=== PATIENT | male | born 1950 | race Caucasian/White ===

== ENCOUNTER 2017-05-06 11:57 | Emergency (ER) | payer OTHER ==
[~2017-05-06] VITALS: Ht 172.7 cm; Wt 76.0 kg
[~2017-05-06 11:57] MED LIST: ADULT LOW DOSE81 M1 PO; ADVAIR 500/501 DISK IH; ASMANEX TW200 MICRO1 IH; ASPIR 8181 M1 PO; ASPIR-LOW81 MG PO; ASTHMA CHECK1 EACH; BACTRIM,SEPT1 TABLET PO; DIOVAN80 MG PO; FISH OIL SOFTG1 EACH PO; FLONASE16 G1 BOTH NARES; GLUCOSAMINE CH1 EACH PO; KEFLEX500 MG PO; LOSARTAN POTASS50 MG PO; MOVE FREE JOIN1 EACH PO; MOVE FREE1 CAPSULE PO; ONE DAILY FOR1 EACH PO; ONE DAILY1 EAC1 PO; ONE-A-DAY MEN'1 EACH PO; PREVACID30 MG PO; PROAIR HFA8.5 GM IH; RAPAFLO8 MG PO; SAW PALMETTO160 MG PO; SIMVASTATIN40 MG PO; SINGULAIR10 MG PO; TAMSULOSIN HCL0.4 MG PO; ULTRAM50 MG PO; ZOCOR20 MG PO
[2017-05-06 13:07] LABS: HEMATOCRIT 39.7 % (38.0-50.0); MCH 30.7 PG (29.0-34.0); MCV 90.2 FL (86-99); MEAN PLAT.VOLUME 8.6 uM^3 (9.0-12.4); PLATELET COUNT 246 K/uL (156-360); RBC DIS.WIDTH-CV 12.8 % (11.8-14.6); RBC DIS.WIDTH-SD 42.2 % (39-53); WHITE BLOOD COUNT 8.1 K/uL (4.1-10.2)
[2017-05-06 13:16] LABS: CHLORIDE 105 mEq/L (99-109); POTASSIUM 4.2 mEq/L (3.7-5.4); SODIUM 141 mEq/L (136-147)
[2017-05-06 13:19] LABS: GLUCOSE 100 mg/dL (70-99)
[2017-05-06 13:20] LABS: ANION GAP 8 MEQ/L (2-14)
[2017-05-06 13:21] LABS: TOTAL BILIRUBIN 0.5 mg/dL (0.0-1.0)
[2017-05-06 13:22] LABS: ALKALINE PHOSPHATASE 76 IU/L (3-129); GFR ESTIMATE (CALCULATED) > 59 mL/min/
[2017-05-06 13:23] LABS: UREA NITROGEN (BUN) 15 mg/dL (9-23)
[2017-05-06] MEDS ORDERED: BACTRIM,SEPT1 TABLET PO (13:52)
[2017-05-06] MEDS ORDERED: SUDAFED 12-HOU120 MG PO (13:53)
[2017-05-06 14:47] VITALS: BP 127/84
== END 2017-05-06 14:48 | disposition home or self-care (01) ==
LOC: EME 11:57
DX: R51 Headache (principal); J32.9 Chronic sinusitis, unspecified; R42 Dizziness and giddiness; I10 Essential (primary) hypertension; J44.9 Chronic obstructive pulmonary disease, unspecified; J45.909 Unspecified asthma, uncomplicated; Z79.82 Long term (current) use of aspirin
CPT/HCPCS: 71020; 80053; 81003; 85027; 93005; 99281; 99283

== ENCOUNTER 2017-06-27 09:32 | Emergency (ER) | payer OTHER ==
[~2017-06-27] VITALS: Ht 172.7 cm; Wt 75.2 kg
[~2017-06-27 09:32] MED LIST changes: +SUDAFED 12-HOU120 MG PO
[2017-06-27 12:07] LABS: EOSINOPHIL COUNT 0.2 K/uL (0-0.3); IMMATURE GRANULOCYTE (%) 0.4 % (0.0-0.7); INSTRUMENT ABS NEUTROPHIL CT 4.5 K/uL; LYMPHOCYTE COUNT 2.8 K/uL (1.0-2.8); MCH 31.5 PG (29.0-34.0); MCHC 34.4 G/DL (30.0-36.0); MCV 91.5 FL (86-99); MEAN PLAT.VOLUME 8.7 uM^3 (9.0-12.4); MONOCYTE (%) 6.8 % (3-12); MONOCYTE COUNT 0.6 K/uL (0-0.8); NEUTROPHIL (%) 55.5 % (45-76); NEUTROPHIL COUNT 4.5 K/uL (1.8-6.4); PLATELET COUNT 262 K/uL (156-360); RBC DIS.WIDTH-CV 12.6 % (11.8-14.6); WHITE BLOOD COUNT 8.1 K/uL (4.1-10.2)
[2017-06-27 12:21] LABS: CHLORIDE 105 mEq/L (99-109); POTASSIUM 4.6 mEq/L (3.7-5.4); SODIUM 142 mEq/L (136-147)
[2017-06-27 12:23] LABS: GLUCOSE 110 mg/dL (70-99)
[2017-06-27 12:24] LABS: ANION GAP 9 MEQ/L (2-14)
[2017-06-27 12:27] LABS: GFR ESTIMATE (CALCULATED) > 59 mL/min/; UREA NITROGEN (BUN) 10 mg/dL (9-23)
[2017-06-27] MEDS ORDERED: TYLENOL WITH C1 EACH PO (15:07)
[2017-06-27 15:37] VITALS: BP 124/69
== END 2017-06-27 15:45 | disposition home or self-care (01) ==
LOC: EME 09:32
PROVIDERS: Emergency Medicine
DX: J01.80 Other acute sinusitis (principal); I10 Essential (primary) hypertension; J44.9 Chronic obstructive pulmonary disease, unspecified; K21.9 Gastro-esophageal reflux disease without esophagitis
CPT/HCPCS: 70450; 70486; 80048; 85025; 99281; 99285; J7030

== ENCOUNTER 2017-11-23 10:13 | Emergency (ER) | payer OTHER ==
[~2017-11-23] VITALS: Ht 175.3 cm; Wt 74.8 kg
[~2017-11-23 10:13] MED LIST changes: +TYLENOL WITH C1 EACH PO
[2017-11-23 10:16] VITALS: BP 166/87
[2017-11-23 11:22] LABS: BASOPHIL (%) 0.3 % (0-1); EOSINOPHIL (%) 3.7 % (0-5); EOSINOPHIL COUNT 0.3 K/uL (0-0.3); HEMATOCRIT 39.6 % (38.0-50.0); HEMOGLOBIN 13.3 G/DL (12.5-16.6); IMMATURE GRANULOCYTE (%) 0.3 % (0.0-0.7); LYMPHOCYTE (%) 29.2 % (15-42); LYMPHOCYTE COUNT 2.2 K/uL (1.0-2.8); MCHC 33.6 G/DL (30.0-36.0); MCV 89.2 FL (86-99); MONOCYTE (%) 8.5 % (3-12); MONOCYTE COUNT 0.6 K/uL (0-0.8); NEUTROPHIL COUNT 4.4 K/uL (1.8-6.4); PLATELET COUNT 271 K/uL (156-360); RBC DIS.WIDTH-CV 12.7 % (11.8-14.6); RBC DIS.WIDTH-SD 41.3 % (39-53); RED BLOOD COUNT 4.44 M/uL (4.00-5.50); WHITE BLOOD COUNT 7.6 K/uL (4.1-10.2)
[2017-11-23 11:34] LABS: ALBUMIN 4.2 g/dL (3.2-4.8); CHLORIDE 104 mEq/L (99-109); POTASSIUM 4.3 mEq/L (3.7-5.4); SODIUM 140 mEq/L (136-147)
[2017-11-23 11:35] LABS: MAGNESIUM 2.2 mg/dL (1.3-2.7)
[2017-11-23 11:37] LABS: GLUCOSE 125 mg/dL (70-99); TOTAL PROTEIN 7.1 g/dL (6.4-8.3)
[2017-11-23 11:39] LABS: TOTAL BILIRUBIN 0.5 mg/dL (0.0-1.0)
[2017-11-23 11:40] LABS: ALKALINE PHOSPHATASE 82 IU/L (3-129)
[2017-11-23 11:41] LABS: CREATININE 0.9 mg/dL (0.6-1.3); GFR ESTIMATE (CALCULATED) > 59 mL/min/ (58.99-99999)
[2017-11-23 11:42] LABS: AST (GOT) 26 IU/L (2-34); UREA NITROGEN (BUN) 11 mg/dL (9-23)
[2017-11-23 11:43] LABS: ALT (GPT) 24 IU/L (3-49)
[2017-11-23 11:52] LABS: APPEARANCE SL.HAZY ((CLEAR)); BILIRUBIN NEGATIVE; BLOOD NEGATIVE; COLOR YELLOW ((YELLOW)); GLUCOSE (STRIP) NEGATIVE; KETONES NEGATIVE; LEUKOCYTES NEGATIVE; NITRITE NEGATIVE; PROTEIN (STRIP) NEGATIVE; SPECIFIC GRAVITY 1.016 (1.000-1.030); UROBILINOGEN 0.2 MG/DL (0.2-1.0)
[2017-11-23 11:58] LABS: BACTERIA NONE SEEN /HPF; EPITHELIAL CELLS NONE SEEN /HPF; MUCUS NONE SEEN /LPF; RED BLOOD CELLS 0-5 /HPF (0-5); UCUL ADDED? NO; WHITE BLOOD CELLS 0-5 /HPF (0-5)
== END 2017-11-23 13:59 | disposition home or self-care (01) ==
LOC: EME 10:13
PROVIDERS: Emergency Medicine
DX: E86.0 Dehydration (principal); R20.2 Paresthesia of skin; I10 Essential (primary) hypertension; J44.9 Chronic obstructive pulmonary disease, unspecified; K21.9 Gastro-esophageal reflux disease without esophagitis; Z79.82 Long term (current) use of aspirin; Z90.3 Acquired absence of stomach [part of]; Z87.442 Personal history of urinary calculi
CPT/HCPCS: 80053; 81003; 83735; 85025; 93005; 99281; 99285; J7030

== ENCOUNTER 2018-03-22 08:11 | Observation (INO) | payer OTHER ==
[~2018-03-22] VITALS: Ht 172.7 cm; Wt 75.0 kg
[2018-03-22 08:57] LABS: HEMATOCRIT 35.1 % (38.0-50.0); HEMOGLOBIN 12.2 G/DL (12.5-16.6); MCH 30.4 PG (29.0-34.0); MCHC 34.8 G/DL (30.0-36.0); MCV 87.5 FL (86-99); PLATELET COUNT 242 K/uL (156-360); RBC DIS.WIDTH-CV 13.2 % (11.8-14.6); RBC DIS.WIDTH-SD 42.4 % (39-53); RED BLOOD COUNT 4.01 M/uL (4.00-5.50); WHITE BLOOD COUNT 8.1 K/uL (4.1-10.2)
[2018-03-22 09:28] LABS: ALKALINE PHOSPHATASE 73 IU/L (3-129); ALT (GPT) 24 IU/L (3-49); AST (GOT) 25 IU/L (2-34); CHLORIDE 105 MEQ/L (99-109); GFR ESTIMATE (CALCULATED) > 59 mL/min/ (58.99-99999); GLUCOSE 123 mg/dL (70-99); LIPASE 20 U/L (1.0-51.0); POTASSIUM 3.6 MEQ/L (3.7-5.4); SODIUM 140 MEQ/L (136-147); TOTAL BILIRUBIN 0.3 MG/DL (0.0-1.0); TOTAL PROTEIN 6.6 G/DL (6.4-8.3); UREA NITROGEN (BUN) 9 mg/dL (9-23)
[2018-03-22 09:30] LABS: TROP-I INTERPRETATION NEGATIVE; TROPONIN-I 0.01 ng/mL (0.0-0.30)
[2018-03-22] MEDS ORDERED: BACTRIM,SEPT1 TABLET PO (10:49)
[2018-03-22] MEDS ORDERED: PULMICORT FLE180 MCG IH (10:51)
[2018-03-22] MEDS ORDERED: NEXIUM40 MG PO (10:52)
[2018-03-22 12:30] VITALS: BP 163/76
[2018-03-22 12:35] LABS: HDL CHOLESTEROL 30 MG/DL (Desirable>=40); LDL CHOLESTEROL 32 mg/dL (Desirable<100); NON-HDL CHOLESTEROL 59 mg/dL (Desirable<160); TOTAL CHOLESTEROL 89 mg/dL (Desirable<200); TRIGLYCERIDES 136 MG/DL (Normal: <150)
[2018-03-22 15:04] LABS: TROP-I INTERPRETATION NEGATIVE; TROPONIN-I 0.01 ng/mL (0.0-0.30)
[2018-03-22 16:53] VITALS: BP 147/71
[2018-03-22 20:15] VITALS: BP 136/66
[2018-03-22 21:04] LABS: TROP-I INTERPRETATION NEGATIVE; TROPONIN-I 0.01 ng/mL (0.0-0.30)
[2018-03-22] MEDS ORDERED: ZANTAC150 MG PO (21:56)
[2018-03-23 10:00] LABS: HEMOGLOBIN A1c (GLYCOHEMOGLOB) 6.2 % (Below 5.7)
== END 2018-03-22 22:57 | disposition home or self-care (01) ==
LOC: EME 08:11 → EDOF 11:30 → ENRESERV 11:45 → 4SOUTH 12:21
PROVIDERS: Hospitalist; Nurse Practitioner Family
DX: R07.89 Other chest pain (principal); I10 Essential (primary) hypertension; E78.5 Hyperlipidemia, unspecified; K21.9 Gastro-esophageal reflux disease without esophagitis; J44.9 Chronic obstructive pulmonary disease, unspecified; R61 Generalized hyperhidrosis; Z87.11 Personal history of peptic ulcer disease; Z90.49 Acquired absence of other specified parts of digestive tract; Z80.1 Family history of malignant neoplasm of trachea, bronchus and lung; Z82.3 Family history of stroke; Z79.82 Long term (current) use of aspirin
CPT/HCPCS: 71046; 80053; 80061; 81003; 83036; 83690; 84484; 85027; 93005; 94640; 94640 76; 99202; 99281; 99284; G0378; J1650; J7030